=== PATIENT | male | born 1975 ===

== ENCOUNTER 2019-04-16 10:29 | Inpatient (IN) | payer OTHER ==
[2019-04-16] VITALS (15 sets, daily range): BP systolic 103–123; BP diastolic 41–79
[~2019-04-16] VITALS: Ht 188 cm; Wt 113.7 kg
[~2019-04-16 10:29] MED LIST: AMIT-189 PO; NAPR-56 PO; TRAM50TA2 PO
[2019-04-16] MEDS ORDERED: ringers solution, lacted 1,000 ML IV SCH ×2 (11:30→14:47)
[2019-04-16] MEDS ORDERED: cefazolin/dext.iso 2gm/100 ML IV ONE (11:30)
[2019-04-16] MEDS ORDERED: vancomycin inj 1,500 MG in normal saline 300ml IV soln IV ONE (11:30)
[2019-04-16] MEDS ORDERED: famotidine 20mg tablet PO ONE (11:30)
[2019-04-16] MEDS ORDERED: ondansetron/PF 4mg/2ml inj IV PRN ×2 (14:50→19:15)
[2019-04-16] MEDS ORDERED: morphine 4 MG/ML inj SYRINge IV PRN ×2 (14:50)
[2019-04-16] MEDS ORDERED: labetalol 20mg/4ml (5mg/ml) syringe IV PRN (14:50)
[2019-04-16] MEDS ORDERED: fentaNYL/PF 50MCG/1 ML 2ML syringe IV PRN ×2 (14:50)
[2019-04-16] MEDS ORDERED: hydrALAZINE 20mg/ml inj. IV PRN (14:50)
[2019-04-16] MEDS ORDERED: tetracaine 1% (10mg/ml) pres. free inj. ONE (15:18)
[2019-04-16] MEDS ORDERED: morphine /PF 1mg/ml 10ml inj. ONE (15:22)
[2019-04-16] MEDS ORDERED: MIDAZolam 1mg/ml 10ml vial ONE (15:22)
[2019-04-16] MEDS ORDERED: fentaNYL/PF 50MCG/1 ML 2ML syringe ONE (15:22)
[2019-04-16] MEDS ORDERED: tranexamic acid inj. 1,000 MG in normal saline 100ml IV soln 100 ML IV ONE ×2 (15:25→22:15)
[2019-04-16] MEDS ORDERED: dexamethasone sod phosphate 4mg/ml inj. ONE (15:26)
[2019-04-16] MEDS ORDERED: vancomycin 1,000mg inj ONE (15:39)
[2019-04-16] MEDS ORDERED: propofol inj 20 ML IV ONE ×6 (15:54→17:11)
[2019-04-16] MEDS ORDERED: ePHEDrine 50MG/ML INJ. ONE ×2 (16:22→17:27)
[2019-04-16] MEDS: ceFAZolin 1000mg inj ONE ×2 (16:48→16:49)
[2019-04-16] MEDS ORDERED: ceFAZolin 1000mg inj ONE ×2 (18:07→18:29)
--- NOTE | 2019-04-16 19:12 | NUR ---
Received from OR via BED, accompanied by Anesthesiologist DR HERNANDEZ and report given by Anesthesiologist. PT AWAKE, DENIES PAIN, RIGHT HIP W/DRSG, ICE PACK, BALDO DRAIN, HIP WRAP, ABDUCTOR WEDGE, CDI, MICHAEL CATHETER TO GRAVIYT DRAINAGE W/YELLOW DRAINAGE IN TUBING. Addendum: 04/16/19 at 1944 by Marlen Jones RN Amended: Links added. Addendum: 04/16/19 at 1946 by Marlen Jones RN LATE ENTRY: DERMATOME LEVEL L-1, L-2
[2019-04-16] MEDS ORDERED: bisacodyl 10mg suppository rectal RC PRN (19:15)
[2019-04-16] MEDS ORDERED: oxyCODONE IR 5mg (immed. release) tablet PO PRN (19:15)
[2019-04-16] MEDS ORDERED: HYDROmorphone inj. 0.5 MG/0.5 ML DISP.SYRIN IV PRN (19:15)
[2019-04-16] MEDS ORDERED: acetaminophen 325mg tablet PO PRN (19:15)
[2019-04-16] MEDS ORDERED: diphenhydrAMINE 25mg capsule PO PRN ×2 (19:15)
[2019-04-16] MEDS ORDERED: vancomycin/NS 1 GM ADD-VANTAGE 250 ML IV SCH (20:00)
--- NOTE | 2019-04-16 20:02 | NUR ---
Report called to receiving nurse. Transferred via BED, NO Belongings, RECEIVING RN AT BEDSIDE TO RECEIVE PT, CORRECTIONAL OFFICERS PRESENT, PT COMFORTABLE. Special Issues communicated to receiving nurse. YES. Addendum: 04/16/19 at 2016 by Marlen Jones RN Amended: Links added.
[2019-04-16] MEDS: sennosides 8.6mg tablet PO SCH (21:00)
[2019-04-16] MEDS: acetaminophen 325mg tablet PO SCH (22:10)
[2019-04-16] MEDS: amitriptyline 50mg tablet PO SCH (22:10)
[2019-04-16] MEDS: gabapentin 300mg capsule PO SCH (22:11)
[2019-04-16] MEDS: oxyCODONE IR 5mg (immed. release) tablet PO PRN (22:15)
[2019-04-16] MEDS: potassium cl 20mEq in 1/2 NS 1,000 ML IV SCH (23:30)
[2019-04-17] VITALS (7 sets, daily range): BP systolic 95–110; BP diastolic 50–61
[2019-04-17] MEDS: HYDROmorphone 1 mg/ml syringe IV PRN ×2 (00:18→04:42)
[2019-04-17] MEDS: ceFAZolin 1GM/D5W- ADD-VANTAGE 50 ML IV SCH ×2 (00:27→08:24)
[2019-04-17] MEDS: acetaminophen 325mg tablet PO SCH ×4 (02:00→20:11)
[2019-04-17] MEDS: potassium cl 20mEq in 1/2 NS 1,000 ML IV SCH ×3 (03:14→19:14)
[2019-04-17 06:09] LABS: BASOPHILS % (AUTO) 0.2 % (0-1); EOSINOPHILS % (AUTO) 0.2 % (0-6); HEMOGLOBIN 12.6 g/dl (14.0-17.9); LYMPHOCYTES # (AUTO) 1.3 X10'3 (1.1-4.8); LYMPHOCYTES % (AUTO) 11.7 % (21-51); MEAN CORPUSCULAR HEMOGLOBIN 29.7 PG (27.0-31.0); MEAN CORPUSCULAR HGB CONC 33.3 g/dL (33.0-36.5); MEAN CORPUSCULAR VOLUME 89.4 FL (78-98); MEAN PLATELET VOLUME 9.1 FL (7.4-10.4); MONOCYTES # (AUTO) 0.6 X10'3 (0-0.9); NEUTROPHILS # (AUTO) 8.8 X10'3 (1.8-7.7); NEUTROPHILS % (AUTO) 81.9 % (42-75); PLATELET COUNT 177 X10'3 (140-440); RED BLOOD COUNT 4.25 X10'6 (4.70-6.10); RED CELL DISTRIBUTION WIDTH 14.5 % (11.5-14.5); WHITE BLOOD COUNT 10.7 X10'3 (4.5-11.0)
--- NOTE | 2019-04-17 06:20 | NUR ---
Received report from Kalli CURRY
[2019-04-17] MEDS: gabapentin 300mg capsule PO SCH ×3 (08:23→20:10)
[2019-04-17] MEDS: enoxaparin 40mg/0.4ml syringe SQ SCH (08:24)
[2019-04-17] MEDS: oxyCODONE IR 5mg (immed. release) tablet PO PRN ×3 (08:24→18:55)
[2019-04-17] MEDS ORDERED: HYDR-4353 PO (08:43)
[2019-04-17] MEDS ORDERED: ENOX40DI11 SQ (08:43)
--- NOTE | 2019-04-17 12:08 | NUR ---
Joint replacement consult: Pt s/p R TKA PO 100% regular diet meeting needs. No BM yet. No nutrition concerns at this time. Will continue to monitor. Addendum: 04/17/19 at [address] Amended: Links added.
[2019-04-17] MEDS: traMADol 50MG tablet PO PRN (16:30)
--- NOTE | 2019-04-17 18:00 | NUR ---
Patient in room ORTHO 4016. I have received report from Olga Lidia and had the opportunity to ask questions and assume patient care.
--- NOTE | 2019-04-17 18:19 | NUR ---
Patient report to Yusuf CURRY and Edmond RN
[2019-04-17] MEDS: amitriptyline 50mg tablet PO SCH (20:12)
[2019-04-17] MEDS: sennosides 8.6mg tablet PO SCH (20:12)
[2019-04-17] MEDS: celeCOXIB 100mg capsule PO SCH (20:12)
[2019-04-18] MEDS: potassium cl 20mEq in 1/2 NS 1,000 ML IV SCH ×2 (03:14→11:14)
[2019-04-18] MEDS: acetaminophen 325mg tablet PO SCH ×3 (04:04→15:33)
[2019-04-18] MEDS: oxyCODONE IR 5mg (immed. release) tablet PO PRN ×3 (04:11→19:39)
--- NOTE | 2019-04-18 05:18 | NUR ---
Pt unable to void, bladder scanner indicated 950ml in bladder. md notified, order obtained. see I/o
[2019-04-18 06:00] VITALS: BP 103/57
--- NOTE | 2019-04-18 06:38 | NUR ---
Problems reprioritized. Patient report given, questions answered & plan of care reviewed with asha.
[2019-04-18 06:42] LABS: BASOPHILS % (AUTO) 0.4 % (0-1); EOSINOPHILS # (AUTO) 0.2 X10'3 (0-0.9); EOSINOPHILS % (AUTO) 2.7 % (0-6); HEMATOCRIT 35.5 % (42.0-52.0); HEMOGLOBIN 11.9 g/dl (14.0-17.9); LYMPHOCYTES # (AUTO) 1.3 X10'3 (1.1-4.8); MEAN CORPUSCULAR HGB CONC 33.6 g/dL (33.0-36.5); MEAN CORPUSCULAR VOLUME 89.5 FL (78-98); MEAN PLATELET VOLUME 9.9 FL (7.4-10.4); MONOCYTES # (AUTO) 0.8 X10'3 (0-0.9); MONOCYTES % (AUTO) 11.2 % (2-12); NEUTROPHILS # (AUTO) 4.7 X10'3 (1.8-7.7); NEUTROPHILS % (AUTO) 66.7 % (42-75); PLATELET COUNT 152 X10'3 (140-440); RED BLOOD COUNT 3.96 X10'6 (4.70-6.10); RED CELL DISTRIBUTION WIDTH 14.5 % (11.5-14.5)
--- NOTE | 2019-04-18 06:51 | NUR ---
Called Dr. Gold gave him an update and to find out if he was going to DC patient. Ok to discharge, order for ativan received for retention.
[2019-04-18] MEDS ORDERED: LORazepam 1 MG tablet PO ONE (07:15)
[2019-04-18] MEDS: gabapentin 300mg capsule PO SCH ×3 (07:42→21:35)
[2019-04-18] MEDS: celeCOXIB 100mg capsule PO SCH ×2 (07:42→19:40)
[2019-04-18] MEDS: enoxaparin 40mg/0.4ml syringe SQ SCH (08:00)
[2019-04-18 10:33] VITALS: BP 95/51
[2019-04-18] MEDS: traMADol 50MG tablet PO PRN (11:20)
--- NOTE | 2019-04-18 11:26 | NUR ---
Case management informed me, the accepting facility wants the patient to be able to transfer in and out of his bed, and have a peer to peer discharge via phone, [phone] Called Dr[address] Gold to update him. Ativan given to patient
[2019-04-18 18:00] VITALS: BP 115/66
--- NOTE | 2019-04-18 18:42 | NUR ---
Problems reprioritized. Patient report given, questions answered & plan of care reviewed with Kalli CURRY.
[2019-04-18] MEDS ORDERED: acetaminophen 325mg tablet PO PRN (19:15)
[2019-04-18] MEDS: amitriptyline 50mg tablet PO SCH (21:35)
[2019-04-18] MEDS: sennosides 8.6mg tablet PO SCH (21:35)
[2019-04-18 22:00] VITALS: BP 102/49
[2019-04-19] MEDS: oxyCODONE IR 5mg (immed. release) tablet PO PRN ×4 (02:03→20:09)
[2019-04-19 05:55] LABS: BASOPHILS % (AUTO) 0.5 % (0-1); EOSINOPHILS # (AUTO) 0.3 X10'3 (0-0.9); HEMATOCRIT 33.5 % (42.0-52.0); HEMOGLOBIN 11.4 g/dl (14.0-17.9); LYMPHOCYTES # (AUTO) 1.4 X10'3 (1.1-4.8); LYMPHOCYTES % (AUTO) 17.6 % (21-51); MEAN CORPUSCULAR HEMOGLOBIN 30.3 PG (27.0-31.0); MEAN CORPUSCULAR VOLUME 89.2 FL (78-98); MEAN PLATELET VOLUME 9.4 FL (7.4-10.4); MONOCYTES # (AUTO) 0.8 X10'3 (0-0.9); MONOCYTES % (AUTO) 9.9 % (2-12); NEUTROPHILS # (AUTO) 5.2 X10'3 (1.8-7.7); PLATELET COUNT 165 X10'3 (140-440); RED BLOOD COUNT 3.76 X10'6 (4.70-6.10); RED CELL DISTRIBUTION WIDTH 14.4 % (11.5-14.5); WHITE BLOOD COUNT 7.7 X10'3 (4.5-11.0)
[2019-04-19 06:00] VITALS: BP 109/56
--- NOTE | 2019-04-19 06:00 | NUR ---
Patient in room ORTHO 4016. I have received report from Kalli CURRY and had the opportunity to ask questions and assume patient care.
[2019-04-19] MEDS: celeCOXIB 100mg capsule PO SCH ×2 (07:52→20:08)
[2019-04-19] MEDS: gabapentin 300mg capsule PO SCH ×3 (07:52→20:08)
[2019-04-19] MEDS: enoxaparin 40mg/0.4ml syringe SQ SCH (07:53)
[2019-04-19 10:00] VITALS: BP 115/56
[2019-04-19] MEDS: traMADol 50MG tablet PO PRN (11:08)
[2019-04-19 18:00] VITALS: BP 109/61
--- NOTE | 2019-04-19 18:30 | NUR ---
Received report from Leta CURRY. Assumed care of patient.
--- NOTE | 2019-04-19 18:36 | NUR ---
Problems reprioritized. Patient report given, questions answered & plan of care reviewed with Laura RN.
[2019-04-19] MEDS: sennosides 8.6mg tablet PO SCH (20:08)
[2019-04-19] MEDS: amitriptyline 50mg tablet PO SCH (20:08)
[2019-04-19 22:00] VITALS: BP 102/51
[2019-04-20] MEDS: oxyCODONE IR 5mg (immed. release) tablet PO PRN ×5 (02:35→21:25)
--- NOTE | 2019-04-20 06:20 | NUR ---
Gave report to Lissy CURRY.
[2019-04-20 06:57] VITALS: BP 98/54
--- NOTE | 2019-04-20 07:01 | NUR ---
RECEIVED REPORT FROM BECKY
[2019-04-20] MEDS: celeCOXIB 100mg capsule PO SCH ×2 (08:34→19:57)
[2019-04-20] MEDS: gabapentin 300mg capsule PO SCH ×3 (08:34→21:25)
[2019-04-20] MEDS: enoxaparin 40mg/0.4ml syringe SQ SCH (08:36)
[2019-04-20] MEDS: traMADol 50MG tablet PO PRN ×2 (08:43→22:35)
[2019-04-20 10:00] VITALS: BP 105/58
[2019-04-20] MEDS: magnesium hydroxide 30ml (MOM) UD suspension PO PRN (16:55)
[2019-04-20 19:00] VITALS: BP 106/74
[2019-04-20] MEDS: sennosides 8.6mg tablet PO SCH (19:57)
[2019-04-20] MEDS: amitriptyline 50mg tablet PO SCH (19:57)
[2019-04-20 22:00] VITALS: BP 119/60
[2019-04-21] MEDS: oxyCODONE IR 5mg (immed. release) tablet PO PRN ×4 (01:21→15:58)
[2019-04-21] MEDS: magnesium hydroxide 30ml (MOM) UD suspension PO PRN (05:42)
[2019-04-21 06:00] VITALS: BP 114/62
[2019-04-21] MEDS: gabapentin 300mg capsule PO SCH ×2 (08:22→15:57)
[2019-04-21] MEDS: celeCOXIB 100mg capsule PO SCH ×2 (08:22→18:34)
[2019-04-21] MEDS: enoxaparin 40mg/0.4ml syringe SQ SCH (08:23)
[2019-04-21 10:00] VITALS: BP 108/65
[2019-04-21] MEDS: traMADol 50MG tablet PO PRN ×2 (10:06→18:34)
--- NOTE | 2019-04-21 12:15 | NUR ---
F/u: Pt pending d/c today. No BM 7 days per EMR post-op. Per RN received MoM, prune juice, power pudding prior to leaving today. IHSAN d/w RN for relistor if pt ends up not d/c today per MD approval since receiving ultram post-op w/ constipation. PO 100% regular diet meeting needs. Addendum: 04/21/19 at [address] Amended: Links added.
[2019-04-21] MEDS: amitriptyline 50mg tablet PO SCH (18:34)
--- NOTE | 2019-04-21 18:53 | NUR ---
Transport here for Patient pick-up, pain meds given and night meds given.
--- NOTE | 2019-04-21 18:56 | NUR ---
Report called to [facility],
== END 2019-04-21 18:50 | DRG 470 ==
LOC: PAS IN 10:29 → EEVIPCON 13:30 → EDSTATUS 13:30 → ORTHO 4S 20:06
PROVIDERS: ADMIT Orthopaedic Surgery; ATTEND Orthopaedic Surgery
PROC: 0QPB04Z Removal of Internal Fixation Device from Right Lower Femur, Open Approach (ICD-10-PCS; 2019-04-16)
PROC: 3E0T3BZ Introduction of Anesthetic Agent into Peripheral Nerves and Plexi, Percutaneous Approach (ICD-10-PCS; 2019-04-16)
PROC: 0SR906A Replacement of Right Hip Joint with Oxidized Zirconium on Polyethylene Synthetic Substitute, Uncemented, Open Approach (ICD-10-PCS; principal; 2019-04-16 15:28)
DX: M16.11 Unilateral primary osteoarthritis, right hip (principal); T84.84XA Pain due to internal orthopedic prosthetic devices, implants and grafts, initial encounter; D62 Acute posthemorrhagic anemia; Y83.1 Surgical operation with implant of artificial internal device as the cause of abnormal reaction of the patient, or of later complication, without mention of misadventure at the time of the procedure; G89.29 Other chronic pain; E66.9 Obesity, unspecified; Z68.32 Body mass index [BMI] 32.0-32.9, adult; Y92.89 Other specified places as the place of occurrence of the external cause
CPT/HCPCS: Z7506; Z7508; 36415; 72170; 82948; 85025; 86885; 86900; 86901; 87081; 97110; 97116; 97162; 97530; A4215; A4338; A7000; C1758; C1776; C9250; G0378; J0690; J1100; J1170; J1650; J2250; J2270; J2405; J2704; J3010; J3370; J3480; J7030; J7120